=== PATIENT | female | born 1955 | race Caucasian/White ===

== ENCOUNTER 2016-04-26 13:52 | Outpatient (CLI) | payer MEDICAID | END 2016-04-26 13:53 | disposition home or self-care (01) | DX: N63 Unspecified lump in breast (principal) ==

== ENCOUNTER 2016-04-26 13:54 | Outpatient (CLI) | payer MEDICAID | END 2016-04-26 13:55 | disposition home or self-care (01) | DX: Z12.2 Encounter for screening for malignant neoplasm of respiratory organs (principal); J43.9 Emphysema, unspecified; Z72.0 Tobacco use; R91.8 Other nonspecific abnormal finding of lung field ==